=== PATIENT | male | born 1945 | race African-American/Black ===

== ENCOUNTER 2019-07-17 13:19 | Emergency (ER) | payer MEDICARE, OTHER ==
[~2019-07-17] VITALS: Ht 185.4 cm; Wt 68.9 kg
[2019-07-17] MEDS ORDERED: ALBUTEROL FS 2.5 MG/3 ML VIAL.NEB NEB ONE (14:30)
[2019-07-17] MEDS ORDERED: methylPREDNISolone SOD SUCC 125 MG/2ML VIAL IV ONE (14:30)
[2019-07-17] MEDS ORDERED: IPRATROPIUM NEB FS 0.5 MG/2.5 ML AMPUL.NEB NEB ONE (14:30)
[2019-07-17] MEDS ORDERED: ALBUTEROL FS 2.5 MG/3 ML VIAL.NEB ONE (14:39)
[2019-07-17] MEDS ORDERED: IPRATROPIUM NEB FS 0.5 MG/2.5 ML AMPUL.NEB ONE (14:39)
[2019-07-17 14:44] LABS: BASOPHILS % (AUTO) 0.2 % (0.0-2.0); EOSINOPHILS % (AUTO) 0.3 % (0.0-6.0); HEMATOCRIT 43 % (39-51); HEMOGLOBIN 14.4 g/dL (13.5-17.5); LYMPHOCYTES # (AUTO) 0.2 /CMM (0.8-4.8); LYMPHOCYTES % (AUTO) 2.1 % (20.0-44.0); MEAN CORPUSCULAR HGB CONC 34 g/dl (31.0-36.0); MEAN CORPUSCULAR VOLUME 93 fL (80-96); MONOCYTES # (AUTO) 0.6 /CMM (0.1-1.30); MONOCYTES % (AUTO) 7.5 % (2.0-12.0); NEUTROPHILS # (AUTO) 6.8 /CMM (1.8-8.9); NEUTROPHILS % (AUTO) 89.9 % (43.0-81.0); PLATELET COUNT (AUTO) 242 /CMM (150-450); WHITE BLOOD COUNT (AUTO) 7.6 K/uL (4.3-11.0)
[2019-07-17] MEDS ORDERED: methylPREDNISolone SOD SUCC 125 MG/2ML VIAL ONE (14:45)
[2019-07-17 14:52] LABS: CALCIUM, SERUM 9.3 mg/dL (8.5-10.1); CARBON DIOXIDE 29 mmol/L (21-32); CHLORIDE 106 mmol/L (98-107); GLUCOSE 146 mg/dL (74-106); POTASSIUM 4.5 mmol/L (3.5-5.1); SODIUM SERUM 144 mmol/L (136-145); UREA NITROGEN, BLOOD 30 mg/dL (7-18)
[2019-07-17 15:04] LABS: ALANINE AMINOTRANSFERASE 19 U/L (12-78); ALKALINE PHOSPHATASE 76 U/L (46-116); ASPARTATE AMINOTRANSFERASE 20 U/L (15-37); B-TYPE NATRIURETIC PEPTIDE 532 PG/ML (0-125); BILIRUBIN,DIRECT 0.2 mg/dL (0.0-0.2); BILIRUBIN,TOTAL 0.9 mg/dL (0.2-1.0)
--- NOTE | 2019-07-17 15:30 | NUR ---
No obvious distress states "feeling better"
[2019-07-17] MEDS ORDERED: ACETAMINOPHEN ES 500 MG TABLET ONE (16:14)
--- NOTE | 2019-07-17 16:29 | NUR ---
Denies any HERBERT at this time VSS able to tolerate po fluids dPatient discharged to home in stable condition. Written and verbal after care instructions given. Patient verbalizes understanding of instruction. Home w/daughter NAD
[2019-07-17] MEDS ORDERED: ACETAMINOPHEN ES 500 MG TABLET PO ONE (16:30)
[2019-07-17 16:31] VITALS: BP 147/80
== END 2019-07-17 16:32 | disposition home or self-care (01) ==
LOC: ER 13:24
DX: R51 Headache (principal); J44.1 Chronic obstructive pulmonary disease with (acute) exacerbation; I10 Essential (primary) hypertension; I48.91 Unspecified atrial fibrillation; Z88.0 Allergy status to penicillin
CPT/HCPCS: 36415; 70450; 71045; 80048; 80076; 83880; 84484; 85025; 93005; 94640; 96374; 99284; J2930

== ENCOUNTER 2023-03-31 15:52 | Emergency (ER) | payer BC, OTHER ==
[~2023-03-31] VITALS: Ht 185.4 cm; Wt 75.7 kg
--- NOTE | 2023-03-31 16:05 | NUR ---
Patient AOx4, patient nods yes or no to questions. No signs of distress of discomfort, on 1lt. O2, saturation 99%. Discussed plan of care, patient agrees.
--- NOTE | 2023-03-31 16:31 | NUR ---
Blood collected, sent to lab.
[2023-03-31 16:37] LABS: BASOPHILS # (AUTO) 0.1 K/uL (0.0-0.2); BASOPHILS % (AUTO) 1.2 % (0.0-2.0); EOSINOPHILS % (AUTO) 3.1 % (0.0-6.0); HEMATOCRIT 32 % (39-51); HEMOGLOBIN 9.7 g/dL (13.5-17.5); LYMPHOCYTES # (AUTO) 0.5 K/uL (0.8-4.8); LYMPHOCYTES % (AUTO) 7.7 % (20.0-44.0); MEAN CORPUSCULAR HGB CONC 30 g/dl (31.0-36.0); MEAN CORPUSCULAR VOLUME 90 fL (80-96); MONOCYTES # (AUTO) 0.6 K/uL (0.1-1.30); MONOCYTES % (AUTO) 10.9 % (2.0-12.0); NEUTROPHILS # (AUTO) 4.5 K/uL (1.8-8.9); NEUTROPHILS % (AUTO) 77.1 % (43.0-81.0); PLATELET COUNT (AUTO) 143 K/uL (150-450); RED BLOOD CELL COUNT(AUTO) 3.57 MIL/uL (4.5-6.0); WHITE BLOOD COUNT (AUTO) 5.8 K/uL (4.3-11.0)
[2023-03-31 16:48] LABS: CALCIUM, SERUM 8.8 mg/dL (8.5-10.1); CARBON DIOXIDE 33 mmol/L (21-32); CHLORIDE 110 mmol/L (98-107); CREATININE 2.3 mg/dL (0.6-1.3); GLUCOSE 101 mg/dL (74-106); POTASSIUM 4.8 mmol/L (3.5-5.1); SODIUM SERUM 146 mmol/L (136-145); UREA NITROGEN, BLOOD 27 mg/dL (7-18)
--- NOTE | 2023-03-31 17:05 | NUR ---
Lab called, Troponin 90, made aware, will continue to monitor.
--- NOTE | 2023-03-31 18:48 | NUR ---
Patient sleeping, no signs of distress, O2 saturation 95%, on 2 lt. Nasal Canula
--- NOTE | 2023-03-31 19:25 | NUR ---
RECEIVED REPORT FROM ALPESH BASSETT FOR DENISE
[2023-03-31] MEDS ORDERED: DOXY-326 PO (20:29)
[2023-03-31] MEDS ORDERED: FUROSEMIDE 20 MG/2 ML VIAL IV ONE (20:30)
--- NOTE | 2023-03-31 20:34 | NUR ---
[facility] ETA: 75-90 MIN
[2023-03-31] MEDS ORDERED: FUROSEMIDE 20 MG/2 ML VIAL ONE (20:58)
--- NOTE | 2023-03-31 21:12 | NUR ---
REPORT GIVEN TO BELINDA FROM [facility]
--- NOTE | 2023-03-31 21:21 | NUR ---
MULTIPLE ATTEMPTS TO CALL [facility] TO GIVE REPORT AT [phone], BUT "THE NUMBER DIALED HAS BEEN DISCONNECTED".
[2023-03-31 21:30] VITALS: BP 157/80
== END 2023-03-31 21:30 ==
LOC: ER 15:55
DX: J44.9 Chronic obstructive pulmonary disease, unspecified (principal); J18.9 Pneumonia, unspecified organism; I10 Essential (primary) hypertension; I48.91 Unspecified atrial fibrillation; E87.70 Fluid overload, unspecified; Z88.0 Allergy status to penicillin
CPT/HCPCS: 99285; 96374; 71045; 93005; 85025; 80048; 36415; 84484 ×2; 83880; J1940; A6403